=== PATIENT | male | born 1955 | race Caucasian/White ===

== ENCOUNTER → 2023-12-21 15:10 | Outpatient (REF) | payer MEDICARE, SELFPAY | LOC: DHSLP 15:10 | PROVIDERS: ATTENDING PHYSICIAN Internal Medicine Cardiovascular Disease; FAMILY PHYSICIAN Family Medicine | DX: G47.30 Sleep apnea, unspecified (principal); R06.83 Snoring | CPT/HCPCS: 95800 ==

== ENCOUNTER 2024-03-07 09:03 | Day surgery (SDC) | payer MEDICARE, SELFPAY ==
[2024-02-20 12:48] VITALS: BMI 26.2
[2024-02-20 13:13] LABS: % Basophils 0.6 % (0-2); % Eosinophils 3.1 % (0-6); % Immature Granulocytes 0.3 % (0-0.5); % Lymphocytes 26.5 % (20.5-51.1); % Monocytes 5.8 % (1.7-9.3); % Neutrophils 63.7 % (42.2-75.2); Absolute Eosinophils 0.2 10^3/uL (0-0.7); Absolute Lymphocytes 1.8 10^3/uL (1.2-3.4); Absolute Monocytes 0.4 10^3/uL (0.1-0.6); Absolute Neutrophils 4.3 10^3/uL (1.4-6.5); Hematocrit 45.2 % (39.0-52.0); Hemoglobin 15.1 g/dL (13.0-18.0); Mean Corp Hgb Conc. 33.4 g/dL (33.0-37.0); Mean Corpuscular Hgb 30.7 pg (27.0-31.0); Mean Corpuscular Volume 91.9 fL (80.0-94.0); Mean Platelet Volume 9.5 fL (7.4-10.4); Nucleated Red Blood Cells % 0 % (-); Platelet Count 259 10^3/uL (130-400); Red Blood Cell Count 4.92 10^6/uL (4.70-6.10); Red Cell Dist. Width 13.1 % (11.5-14.5); White Blood Cell Count 6.8 10^3/uL (4.8-10.8)
[2024-02-20 13:26] LABS: INR 1.14; PT 14.9 Sec (11.4-14.6)
[2024-02-20 13:39] LABS: ALT (SGPT) 46 U/L (0-50); AST (SGOT) 34 U/L (17-59); Albumin 4.4 g/dl (3.5-5.0); Alkaline Phosphatase 54 U/L (38-126); Blood Urea Nitrogen 19 mg/dl (9-20); Calcium 9.5 mg/dl (8.4-10.2); Carbon Dioxide 29 mmol/L (22-30); Chloride 104 mmol/L (98-107); Estimated Creatinine Clearance 77 ml/min; Glucose 84 mg/dl (70-99); Magnesium 2.2 mg/dl (1.6-2.3); Potassium 4.6 mmol/L (3.5-5.1); Sodium 144 mmol/L (135-145); Total Bilirubin 0.8 mg/dl (0.2-1.3); Total Protein 7.1 g/dl (6.3-8.2); eGFR > 60.00
--- NOTE | 2024-03-05 10:28 | OID.L.PAT ---
Pulmonary Nodule Pat Letter
- -
03/05/24
LANG CAVANAUGH
[address]
[place], [place],
A pulmonary nodule was seen on an imaging study done by [facility]. This was reviewed by the [facility] Pulmonary Nodule Advisory Board and the following recommendation was made:
Recommendation: Based on current guidelines, no further follow up is necessary
If you have any questions, please do not hesitate to contact your primary care physician. If you are in need of a Physician, you can go to [email or web address] and click on 'Find a Provider'. Type 'Family Medicine' in the search.
Oncology Nurse Navigator
[facility]
[phone]
--- NOTE | 2024-03-05 10:28 | OID.L.REC ---
Pulmonary Nodule Follow Up
- Recommendation
03/05/24
Pulmonary Nodule Review Recommendations
Your patient, LANG CAVANAUGH, had a pulmonary nodule seen on an imaging study done on 02/20/24 in the [facility] Radiology Department.
This was reviewed by the [facility] Pulmonary Nodule Advisory Board and the following recommendation was made:
Recommendation: Based on current guidelines, no further follow up is necessary
If you have any questions please do not hesitate to contact us.
Sincerely,
Oncology Nurse Navigator
[facility]
[phone]
[2024-03-07] VITALS (11 sets, daily range): BP systolic 104–129; BP diastolic 64–95
[2024-03-07 12:24] LABS: ACT-LR - POC 319 Seconds (116-155)
[2024-03-07 12:38] LABS: ACT-LR - POC 327 Seconds (116-155)
[2024-03-07 13:17] LABS: ACT-LR - POC 334 Seconds (116-155)
[2024-03-07 13:40] LABS: ACT-LR - POC 368 Seconds (116-155)
--- NOTE | 2024-03-07 14:55 | ITS.CL.ABL ---
[employer] Operator - Ablation
Ablation
Procedure Report:
Primary Business Librarian: Junior Perez MD
Procedure Date: 03/07/2024
Patient History:
Patient is a very pleasant 69-year-old male with a past medical history significant for hypertension, hypercholesterolemia, PAF status post RF PVI/CTI February 2008 at [facility] who presents with recurrent atrial
fibrillation and atrial flutter.
See H&P for complete details.
Indication:
Symptomatic paroxysmal atrial fibrillation
Symptomatic atypical atrial flutter
Arrhythmia Specific History:
Prior Medical Therapies for Rate and Rhythm Control:
X Beta-yuly
[ ] Calcium channel-yuly
[ ] Amiodarone
[ ] Dronederone
[ ] Sotalol
X Flecainide
[ ] Dofetilide
[ ] Options limited by bradycardia
[ ] Options limited by comorbid renal disease
Prior Procedural Therapies for AF/AFL:
X Cardioversion
X Pulmonary Vein Isolation - PVI RFA
[ ] Posterior Wall Isolation
X Additional lines (Specify) - CTI RFA
[ ] Surgical Santana-MAZE or PVI (Specify)
Procedure Performed:
X AF ablation procedure (28535) -- includes LA/CS pacing, trans-septal, 3D mapping, + ICE
[ ] +IV drug (69585)
X +Other Arrhythmia (48065) - atypical atrial flutter (mitral flutter line, lateral)
X +Other AF Line/ablation (48517) - PFA PWI (floor, roof, posterior wall)
Risks and expected recovery has been explained in detail. Alternative options have been explored, and in a shared-decision making fashion we have decided that this was the most appropriate procedure.
Method
NPO status confirmed. Grounding pad applied. Defibrillator pads applied. Continuous surface ECG, pulse oximetry, and blood pressure were monitored. Procedure was performed under general anesthesia, with anesthesia services.
Both groins were clipped, prepped with Chloraprep, and draped in sterile fashion. Time out was called. Local anesthesia administered with bupivacaine. The right femoral vein was accessed for catheter placement, using ultrasound guidance,
micro-puncture needle/wire, and modified seldinger technique. 3 sheaths were placed. The following catheters were used:
[ ] Tacticath SE (D/F Curve) ablation catheter
X Viewflex 9Fr ICE catheter
X Inquiry decapolar 6Fr diagnostic catheter
[ ] CRD Hex 6Fr
[ ] Arctic Front Advance Cryoballoon ([ ]28mm[ ]23mm)
[ ] Achieve Advance mapping catheter ([ ]15mm[ ]20mm)
X FlexCath Contour 10 Fr with PulseSelect PFA Catheter
X Advisor HD Grid Mapping Catheter, SE
[ ] Acuson AcuNav 8 Fr ICE catheter
[ ]Other: [ ]
Intracardiac ultrasound (ICE) was carefully advanced into the right atrium to guide sheath placement over a J-wire, catheter placement, guide trans-septal puncture, identify potential complications, identify anatomic structures and ensure proper
contact between ablation catheter and tissue.
Heparin was given prior to trans-septal puncture. Heparin was given to achieve and maintain a target ACT of 300-400 seconds throughout the procedure.
Trans-septal access was performed under ICE guidance. The trans-septal puncture was performed with a SafeSept wire through a Brockenbrough needle assembly through the steerable sheath. The wire was visualized as it entered the LSPV and system
advanced under ICE guidance and fluoroscopy into the LA. The Brockenbrough needle assembly, SafeSept wire and sheath dilator were removed under negative pressure. LA pressure was measured and recorded.
ICE and 3D mapping was performed to identify relevant cardiac structures. A careful 3D map was created to assess for regions of low-voltage and abnormal electrogram signals using HD grid mapping catheter and PulseSelect catheter. Additional mapping
was performed as outlined below. Patient was noted to be in atrial flutter, atypical at 250-260 ms. Activation was distal to proximal with CS 3�4 earliest dipole. Electroanatomic mapping performed with HD grid demonstrated reconnection of each
vein with activation occurring across the posterior wall and mitral annulus.
Prior to ablation, glycopyrrolate was provided. PulseSelect catheter was advanced over J-wire to the ostium of each vein. Pulmonary vein isolation was performed with ostial and antral lesions in a circumferential manner. Contact was visualized via
EAM, ICE, fluoroscopy, and EGM signals. Posterior wall isolation was performed by anchoring the J-wire within the pulmonary vein and placing the PulseSelect catheter in contact with the posterior wall as visualized by aforementioned methods.
Following isolation of the pulmonary veins and posterior wall, activation of the left atrial flutter did not change. Pulse select catheter was placed along the lateral mitral isthmus and ablation was delivered terminating the atrial flutter.
Following completion of ablation lesions, a post-ablation voltage/activation map was performed in sinus rhythm. Entrance and exit block were confirmed for each vein and the posterior wall. Persistent block was not noted at the lateral mitral
isthmus line therefore repeat ablation was performed connecting annulus to right inferior pulmonary vein. Repeat mapping with HD grid demonstrated persistent lateral mitral isthmus block with CS pacing. Split potentials were noted along the lateral
mitral isthmus line.
Catheter and sheath were removed from the left atrium and post-ablation intracardiac echo evaluation was consistent with pre-ablation with no changes and no pericardial effusion and there is no left atrial thrombus or left ventricle thrombus seen.
Using the HD grid and CS pacing, persistent block with split signals were noted on the CTI line. Electrophysiology study was performed. Hemostasis was obtained with Vascade for each sheath and with manual pressure. Protamine was used for reversal.
Estimated Blood Loss
5 mL
Complications
None
Fluoroscopy: 3.4 minutes; 7.64 mGy; DAP 1.68
Baseline Intervals:
Rhythm: Atrial flutter, 260 cycle length
QRS: 152 ms
QT: 393 ms
Post-Procedure Intervals:
NE: 223 ms
QRS: 154 ms
QT: 462 ms
QTc: 473 ms
AVWB: 360 ms
AVNERP: 600/290 ms
Recommendations
- Bedrest with straight-leg precautions as ordered
- Anticipate same day discharge if patient meeting clinical metrics
- Resume home medications as indicated
- Ok to resume anticoagulation tonight if patient and groin sites stable
- PPI daily for 30 days
- Plan for follow-up in office as scheduled
� Continue metoprolol, flecainide with plan for discontinuation at 3-month latasha
Hector Chang,
Clinical Cardiac Healthcare Applications Analyst
cc: Duncan Perez MD; Mari Onofre MD
[2024-03-07 15:18] LABS: ACT-LR - POC > 397 Seconds (116-155)
[2024-03-07] MEDS: TYLENOL 650 MG PO (15:25)
[2024-03-07] MEDS: ANESTHETIC LOZENGE 1 LOZENGE PO (16:02)
--- NOTE | 2024-03-07 16:19 | W.PN.UPDATE ---
Update Note
Progress Note Update
Pt seen post PFA. Right groin site with vascade closure, no ht/bleeding, non tender, oob to chair, urinating without difficulty. Post EKG NSR 70s w/RBBB as before, no acute changes. Resume eliquis tonight at usual time, continue flecainide and
metoprolol as before. Followup at [facility] in [address] Perez thereafter. Home later today if groin site/tele remain stable.
== END 2024-03-07 17:23 | disposition home or self-care (01) ==
LOC: CATH 09:03
PROVIDERS: ATTENDING PHYSICIAN Internal Medicine Cardiovascular Disease; FAMILY PHYSICIAN Family Medicine; OTHER PHYSICIAN Internal Medicine Cardiovascular Disease
DX: I48.0 Paroxysmal atrial fibrillation (principal); R53.83 Other fatigue; I10 Essential (primary) hypertension; E78.00 Pure hypercholesterolemia, unspecified; I45.10 Unspecified right bundle-branch block; R94.31 Abnormal electrocardiogram [ECG] [EKG]; J45.909 Unspecified asthma, uncomplicated; R91.8 Other nonspecific abnormal finding of lung field; G47.33 Obstructive sleep apnea (adult) (pediatric); K21.9 Gastro-esophageal reflux disease without esophagitis; M19.90 Unspecified osteoarthritis, unspecified site; G43.909 Migraine, unspecified, not intractable, without status migrainosus; I48.4 Atypical atrial flutter; Z85.828 Personal history of other malignant neoplasm of skin; Z90.79 Acquired absence of other genital organ(s); Z85.46 Personal history of malignant neoplasm of prostate; Z79.01 Long term (current) use of anticoagulants; Z90.89 Acquired absence of other organs
CPT/HCPCS: C1894; C1769; C1733; C1766; 36415; 75572; 80053; 83735; 85025; 85347; 85610; 86850; 86900; 86901; 93005; 93655; 93656; 93657; C1732; C1760; Q9967

== ENCOUNTER → 2024-04-03 12:45 | Outpatient (REF) | payer MEDICARE, SELFPAY | LOC: RAD 12:45 | PROVIDERS: ATTENDING PHYSICIAN Physician Assistant; FAMILY PHYSICIAN Family Medicine; REFERRING PHYSICIAN Internal Medicine Cardiovascular Disease | DX: R10.31 Right lower quadrant pain (principal) | CPT/HCPCS: 93926 ==